=== PATIENT | male | born 1970 | race American Indian/Alaskan Native ===

== ENCOUNTER 2019-02-22 01:32 | Emergency (ER) | payer SELFPAY ==
[2019-02-22] MEDS ORDERED: LORazepam 1 MG TAB PO ONE ×2 (01:55→02:47)
[2019-02-22] MEDS ORDERED: LORazepam 0.5 MG TAB ONE (01:58)
[2019-02-22 02:15] LABS: Basophils % (Auto) 0.5 % (0.0-1.8); Hematocrit 47.7 % (35.5-45.6); Hemoglobin 16.4 gm/dl (11.8-15.2); Lymphocytes # (Auto) 1.3 K/mm3 (1.2-5.4); Lymphocytes % (Auto) 23.1 % (13.4-35.0); Mean Corpuscular HGB Conc 34 % (32-34); Mean Corpuscular Volume 95 fl (84-94); Monocytes # (Auto) 0.5 K/mm3 (0.0-0.8); Monocytes % (Auto) 8.5 % (0.0-7.3); Platelet Count 214 K/mm3 (140-440); Red Blood Count 5.01 M/mm3 (3.65-5.03); Red Cell Distribution Width 13.3 % (13.2-15.2)
[2019-02-22 02:36] LABS: BUN/Creatinine Ratio 14; Blood Urea Nitrogen 11 mg/dL (9-20); Calcium 9.8 mg/dL (8.4-10.2); Hemolysis Index 25
--- NOTE | 2019-02-22 03:10 | Emergency Department Report ---
ED Psych HPI - General Chief Complaint: Psych Stated Complaint: MH EVAL/SUICIDAL THOUGHTS Time Seen by Provider: 02/22/19 02:11 Source: EMS Mode of arrival: Ambulatory - History of Present Illness Initial Comments: Patient is a 49-year-old black male who is here secondary to having extreme anxiety and contemplated suicide. Patient states that approximately 6 months ago his fiance killed herself by hanging. Patient found her pain body. Patient states since he is not been unable to get the image out of his head. Occasionally will be flooded with large amount of anxiety and he was having palpitations shortness of breath. Patient states he picked up a handful of pills in attempt to digitally kill himself "pills now and call for help. Patient is denying any homicidal ideations or any auditory or visual hallucinations. Patient states he is having difficulty eating secondary to anxiety and depression. - Related Data Allergies Allergy/AdvReac Type Severity Reaction Status Date / Time No Known Allergies Allergy Verified 02/22/19 01:57 ED Review of Systems ROS: Stated complaint: MH EVAL/SUICIDAL THOUGHTS Other details as noted in HPI Comment: All other systems reviewed and negative ED Past Medical Hx - Past Medical History Previous Medical History?: No - Surgical History Past Surgical History?: No - Social History Smoking Status: Never Smoker ED Physical Exam - General Limitations: No Limitations General appearance: alert, anxious - Head Head exam: Present: atraumatic, normocephalic - Eye Eye exam: Present: normal appearance, PERRL, EOMI - ENT ENT exam: Present: mucous membranes moist - Neck Neck exam: Present: normal inspection. Absent: tenderness - Respiratory Respiratory exam: Present: normal lung sounds bilaterally. Absent: respiratory distress, wheezes, rales, rhonchi - Cardiovascular Cardiovascular Exam: Present: regular rate, normal rhythm. Absent: systolic murmur, diastolic murmur, rubs, gallop - GI/Abdominal GI/Abdominal exam: Present: soft, normal bowel sounds. Absent: distended, tenderness, guarding, rebound - Rectal Rectal exam: Present: deferred - Extremities Exam Extremities exam: Present: normal inspection - Back Exam Back exam: Present: normal inspection - Neurological Exam Neurological exam: Present: alert, oriented X3 - Psychiatric Psychiatric exam: Present: agitated, anxious - Skin Skin exam: Present: warm, dry, intact, normal color. Absent: rash ED Course Vital Signs 02/22/19 02:04 Temperature 98.5 F Pulse Rate 72 Respiratory 16 Rate Blood Pressure 106/66 [Right] O2 Sat by Pulse 97 Oximetry - Reevaluation(s) Reevaluation #1: 02/22/19 03:09 Is medically cleared for psychiatric evaluation at this time. ED Medical Decision Making - Lab Data Result diagrams: 02/22/19 01:52 02/22/19 01:52 Lab Results 02/22/19 02/22/19 02/22/19 Range/Units 01:52 01:52 01:52 WBC (4.5-11.0) K/mm3 RBC (3.65-5.03) M/mm3 Hgb (11.8-15.2) gm/dl Hct (35.5-45.6) % MCV (84-94) fl MCH (28-32) pg MCHC (32-34) % RDW (13.2-15.2) % Plt Count (140-440) K/mm3 Lymph % (Auto) (13.4-35.0) % Nance % (Auto) (0.0-7.3) % Eos % (Auto) (0.0-4.3) % Baso % (Auto) (0.0-1.8) % Lymph # (1.2-5.4) K/mm3 Nance # (0.0-0.8) K/mm3 Eos # (0.0-0.4) K/mm3 Baso # (0.0-0.1) K/mm3 Seg Neutrophils % (40.0-70.0) % Seg Neutrophils # (1.8-7.7) K/mm3 Sodium 139 (137-145) mmol/L Potassium 4.1 (3.6-5.0) mmol/L Chloride 100.0 (98-107) mmol/L Carbon Dioxide 22 (22-30) mmol/L Anion Gap 21 mmol/L BUN 11 (9-20) mg/dL Creatinine 0.8 (0.8-1.5) mg/dL Estimated GFR > 60 ml/min BUN/Creatinine Ratio 14 % Glucose 99 (75-100) mg/dL Calcium 9.8 (8.4-10.2) mg/dL Salicylates < 0.3 L (2.8-20.0) mg/dL Acetaminophen < 5.0 L (10.0-30.0) ug/mL Plasma/Serum Alcohol (0-0.07) % 02/22/19 02/22/19 Range/Units 01:52 01:52 WBC 5.8 (4.5-11.0) K/mm3 RBC 5.01 (3.65-5.03) M/mm3 Hgb 16.4 H (11.8-15.2) gm/dl Hct 47.7 H (35.5-45.6) % MCV 95 H (84-94) fl MCH 33 H (28-32) pg MCHC 34 (32-34) % RDW 13.3 (13.2-15.2) % Plt Count 214 (140-440) K/mm3 Lymph % (Auto) 23.1 (13.4-35.0) % Nance % (Auto) 8.5 H (0.0-7.3) % Eos % (Auto) 0.0 (0.0-4.3) % Baso % (Auto) 0.5 (0.0-1.8) % Lymph # 1.3 (1.2-5.4) K/mm3 Nance # 0.5 (0.0-0.8) K/mm3 Eos # 0.0 (0.0-0.4) K/mm3 Baso # 0.0 (0.0-0.1) K/mm3 Seg Neutrophils % 67.9 (40.0-70.0) % Seg Neutrophils # 3.9 (1.8-7.7) K/mm3 Sodium (137-145) mmol/L Potassium (3.6-5.0) mmol/L Chloride (98-107) mmol/L Carbon Dioxide (22-30) mmol/L Anion Gap mmol/L BUN (9-20) mg/dL Creatinine (0.8-1.5) mg/dL Estimated GFR ml/min BUN/Creatinine Ratio % Glucose (75-100) mg/dL Calcium (8.4-10.2) mg/dL Salicylates (2.8-20.0) mg/dL Acetaminophen (10.0-30.0) ug/mL Plasma/Serum Alcohol < 0.01 (0-0.07) % Critical care attestation.: If time is entered above; I have spent that time in minutes in the direct care of this critically ill patient, excluding procedure time. ED Disposition Condition: Stable
[2019-02-22 09:01] LABS: Bilirubin,Urine NEG (Negative); Blood,Urine NEG (Negative); Color,Urine Yellow (Yellow); Protein,Urine <15 mg/dL mg/dL (Negative); Urobilinogen,Urine < 2.0 mg/dL (<2.0)
[2019-02-22 09:12] LABS: Amphetamine Screen,Urine PRESUMPTIVE NEGATIVE; Benzodiazepines Screen,Urine PRESUMPTIVE NEGATIVE; Cocaine Screen,Urine PRESUMPTIVE NEGATIVE; Methadone Screen,Urine PRESUMPTIVE NEGATIVE; Opiate Screen,Urine PRESUMPTIVE NEGATIVE
[2019-02-22 09:26] LABS: Cannabinoid Screen,Urine PRESUMPTIVE POSITIVE
[2019-02-22] MEDS: clonazePAM 0.5 MG TAB PO SCH (23:56)
[2019-02-23] MEDS: clonazePAM 0.5 MG TAB PO SCH ×2 (10:10→22:10)
--- NOTE | 2019-02-23 14:36 | Consultation ---
History of Present Illness - Reason for Consult Consult date: 02/23/19 Reason for consult: psychiatric assessment - History of Present Psychiatric Illness mr Bertrand is a 44-year-old -[place]ag[place] male the patient is alert and oriented 3, the patient reported that the reason he was here in the hospital is because he has bad anxiety and depression. He states and that his girlfriend hang herself in August. He reported having racing thoughts and believed that he may be paranoid. The patient then start talking about a gentleman that reached out to him that he didn't know and offer to come to his house. The patient states, " I sometimes think the gentleman that reached out to me possibly encourage my girlfriend to kill herself". He then said, "people believe that I am the one that killed her". He then said I think my thoughts are all over the place. Patient denies suicidal ideation states i can't kill myself I have to live for my kids". He reports his mood is okay but reported anxiety he denies seeing or hearing things he reported that he does not sleep well. PAST PSYCHIATRIC HISTORY: Diagnoses: Suicidal ideation Suicide attempts or Self-harm behavior; no Prior psychiatric hospitalizations no Substance Abuse history: Marijuana Previous psychiatric medications tried: No Outpatient treatment: PAST MEDICAL HISTORY: None Family Psychiatric History None reported or documented SOCIAL HISTORY Marital Status: Single Living Arrangements: Lives with his on Employment Status: Unemployed Access to guns/weapons: No weapons [place] Education: Ninth grade History of Abuse: None Legal History: Not sure ROS: Constitutional: Negative for weight loss ENT: Negative for stridor Respiratory: Negative for cough or hemoptysis All other systems reviewed and are negative MENTAL STATUS General Appearance and Behavior: age appropriate, intermittent eye contact, cooperative with questioning and polite Cooperation: Cooperative Psychomotor Behavior: within normal limits Mood: depressed Affect and affective range: Congruent with stated mood Thought Process: Fluent/Logical and Goal-directed Thought Content: tangential Speech: Normal volume and Regular rate and rhythm Intellectual Functioning Average Suicidal Ideation: Denies SI Homicidal Ideation: Denies HI Impulse Control: intact Insight and Judgment: limited Attention: Normal Orientation: alert and oriented RECOMMENDATIONS MEDICATIONS: Zoloft 50 mg daily Risks, benefits and alternatives of medications discussed with the patient, questions answered and consent obtained from patient. PSYCHOTHERAPY: Supportive psychotherapy provided MEDICAL: Per primary team DELIRIUM PRECAUTIONS: Please re-orient patient frequently, keep lights on during the day, and minimize benzodiazepines and opiates as these medications could worsen patient's confusion. 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 The patient is very paranoid and has disorganized thoughts. Inpatient admit for safety and stabilization of symptoms. LEGAL STATUS: FOLLOW-UP: Will follow until discharge to a inpatient facility. Medications and Allergies Allergies Allergy/AdvReac Type Severity Reaction Status Date / Time No Known Allergies Allergy Verified 02/22/19 01:57 Home Medications Medication Instructions Recorded Confirmed Last Taken Type No Known Home Medications [No 02/22/19 02/22/19 Unknown History Reported Home Medications] Active Meds: Active Medications Clonazepam (Klonopin) 0.25 mg PO BID MIRI Last Admin: 02/23/19 10:10 Dose: 0.25 mg Documented by: Hydroxyzine Pamoate (Vistaril) 50 mg PO Q6H PRN PRN Reason: Anxiety Last Admin: 02/22/19 17:31 Dose: 50 mg Documented by: Trazodone HCl (Desyrel) 50 mg PO QHS PRN PRN Reason: insomnia Mental Status Exam - Vital signs Last Vital Signs Temp 98.7 F 02/23/19 07:00 Pulse 80 02/23/19 07:00 Resp 20 02/23/19 07:00 BP 109/90 02/23/19 07:00 Pulse Ox 98 02/23/19 07:00 Results Result Diagrams: 02/22/19 01:52 02/22/19 01:52 All other labs normal.
[2019-02-23] MEDS: SERTRALINE 50 MG TAB PO SCH (16:16)
[2019-02-23] MEDS: traZODone 50 MG TAB PO PRN (22:10)
[2019-02-23] MEDS ORDERED: ACETAMINOPHEN 325 MG TAB PO ONE (22:24)
[2019-02-24] MEDS: clonazePAM 0.5 MG TAB PO SCH ×2 (09:48→22:03)
[2019-02-24] MEDS: SERTRALINE 50 MG TAB PO SCH (09:48)
--- NOTE | 2019-02-24 12:22 | Progress Note ---
Subjective - Reason for Consult Consult date: 02/24/19 Reason for consult: psychiatric assessment - Chief Complaint Chief complaint: I interviewed the patient this morning. Medical records reviewed and patient's progress was discussed with unit staff. per chart patient resting comfortably on recliner with eyes closed. visible chest rise and fall noted. no signs of respiratory distress In my interview with the patient this morning, the patient is alert and oriented 3. Patient is dressed appropriately the patient maintain eye contact patient is able to make needs known.The patient denies suicidal or homicidal ideation. The patient denies seeing or hearing things. The patient does report racing thoughts. The patient reports having intrusive thoughts related to the traumatic event. The patient is having obsessive thoughts about a stranger who keep texting him and belief he is the one who encourage his girlfriend to hang herself. The patient appeared anxious and paranoid. Review of Symptoms: Constitutional: Negative for weight loss ENT: Negative for stridor Respiratory: Negative for cough or hemoptysis All other systems reviewed and are negative MSE Appearance: Wearing appropriate clothing. Good hygiene Behavior: Pleasant and cooperative. Mood: "ok" Affect: Congruent with stated mood Thought Process: Goal directed Speech: Normal rate. Thought Content Harmfulness Denies SI/HI Hallucinations: patient denies Delusions: none elicited Consciousness: alert. Cognition/Memory: normal. Insight/Judgment: Limited. RECOMMENDATIONS MEDICATIONS: continue prozac 50mg daily Risks, benefits and alternatives of medications discussed with the patient, questions answered and consent obtained from patient. PSYCHOTHERAPY: Supportive psychotherapy provided MEDICAL: Per primary team DELIRIUM PRECAUTIONS: Please re-orient patient frequently, keep lights on during the day, and minimize benzodiazepines and opiates as these medications could worsen patient's confusion. 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 LEGAL STATUS: FOLLOW-UP: Will follow Mental Status Exam - Vital signs Last Vital Signs Temp 98.4 F 02/24/19 07:00 Pulse 64 02/24/19 07:00 Resp 18 02/24/19 07:00 BP 115/71 02/24/19 07:00 Pulse Ox 100 02/24/19 07:00
[2019-02-24] MEDS ORDERED: ACETAMINOPHEN 325 MG TAB PO ONE (14:40)
[2019-02-24] MEDS: traZODone 50 MG TAB PO PRN (22:04)
[2019-02-25] MEDS: SERTRALINE 50 MG TAB PO SCH (11:00)
[2019-02-25] MEDS: clonazePAM 0.5 MG TAB PO SCH (11:00)
[2019-02-25] MEDS ORDERED: ACETAMINOPHEN 325 MG TAB ONE (13:59)
[2019-02-25] MEDS ORDERED: ACETAMINOPHEN 325 MG TAB PO ONE (14:12)
[2019-02-25 14:35] VITALS: BP 115/53
== END 2019-02-25 16:00 ==
LOC: ED 01:32 → EEVIPCON 01:32 → ED 02-25 16:00
DX: R45.851 Suicidal ideations (principal); R06.02 Shortness of breath; R00.2 Palpitations; Z79.899 Other long term (current) drug therapy
CPT/HCPCS: 36415; 80048; 80307; 80320; 81001; 85025; G0480; Q0177